=== PATIENT | female | born 1990 | race African-American/Black ===

== ENCOUNTER 2016-11-13 16:57 | Emergency (ER) | payer OTHER ==
[~2016-11-13] VITALS: Ht 154.9 cm; Wt 81.6 kg
[2016-11-13] MEDS ORDERED: BACT800T5 PO (17:06)
[2016-11-13] MEDS ORDERED: IBUP80TA PO (18:33)
[2016-11-13 18:40] VITALS: BP 133/67
[2016-11-13] MEDS ORDERED: IBUPROFEN 800 MG TAB PO ONE (18:45)
== END 2016-11-13 18:44 | disposition home or self-care (01) ==
LOC: M ED 18:08
DX: L05.91 Pilonidal cyst without abscess (principal)